=== PATIENT | male | born 1985 | race Caucasian/White ===

== ENCOUNTER 2018-07-03 14:42 | Outpatient (CLI) | payer BC, OTHER ==
--- NOTE | 2018-07-03 17:39 | Diagnostic Imaging Report ---
Indication: Cough Technique: 2 views of the chest Comparison: None Findings: Lungs and pleural spaces are clear. The heart size is normal. The lungs are equivocally somewhat hyperinflated, unchanged The bones are unremarkable. No significant interim change. Impression: Possible hyperinflation, also previously described. No acute process otherwise
--- NOTE | 2018-07-03 17:40 | Diagnostic Imaging Report ---
Indications:Right elbow pain Technique: Three or 4 views of the elbow Comparison: None Findings: No acute fractures. No dislocations. The joint spaces are preserved Impression: Negative
--- NOTE | 2018-07-03 17:41 | Diagnostic Imaging Report ---
Indications: Reason For Exam: PAIN Technique: Three views of the left knee Comparison: None Findings: No acute fractures. No dislocations. Joint spaces are preserved. No radiopaque foreign body. Normal mineralization. No suprapatellar effusion Impression: No acute process
--- NOTE | 2018-07-03 17:41 | Diagnostic Imaging Report ---
Indications:Left elbow pain Technique: Three or 4 views of the left elbow Comparison: None Findings: No acute fractures. No dislocations. The joint spaces are preserved Impression: Negative
--- NOTE | 2018-07-03 17:42 | Diagnostic Imaging Report ---
Indications: Right knee pain Technique: Three views of the right knee Comparison: None Findings: No acute fractures. No dislocations. Joint spaces are preserved. No radiopaque foreign body. Normal mineralization. No suprapatellar effusion Impression: No acute process
== END 2018-07-03 16:42 | disposition home or self-care (01) ==
LOC: RAD 14:42
DX: Z20.1 Contact with and (suspected) exposure to tuberculosis (principal); M25.562 Pain in left knee; M25.561 Pain in right knee; M25.522 Pain in left elbow; M25.521 Pain in right elbow; R05 Cough
CPT/HCPCS: 71046